=== PATIENT | female | born 1955 | race Caucasian/White ===

== ENCOUNTER → 2016-09-26 | Outpatient (CLI) | payer BC ==
[~2016-09-26] MED LIST: AMIT10TA6 PO; MULTTAB58 PO; OLME1TAB11 PO; SIMV40TA4 OR; SUMA25TA12 PO
--- NOTE | 2016-09-27 12:36 | MAMMOGRAPHY REPORT ---
BILATERAL DIGITAL SCREENING MAMMOGRAM TOMOSYNTHESIS WITH CAD: 09/26/2016 CLINICAL HISTORY: Routine screening. Patient has no complaints. TECHNIQUE: Breast tomosynthesis in addition to standard 2D mammography was performed. Current study was also evaluated with a Computer Aided Detection (CAD) system. COMPARISON: Comparison is made to exams dated: 09/17/2015 mammogram, 09/15/2013 mammogram, 09/16/2014 mammogram, 09/13/2012 mammogram, 09/12/2011 mammogram, and 09/09/2010 mammogram - [facility]. BREAST COMPOSITION: The tissue of both breasts is heterogeneously dense, which may obscure small ma sses. FINDINGS: There are a few benign coarse calcifications and mild vascular calcifications in the ace sts. A grouping of punctate microcalcifications in the lower inner posterior right breast is unchan ged mammographically dating back to at least 10/06/2008, therefore likely benign. No new suspicious mass, architectural distortion or cluster of microcalcifications is seen. IMPRESSION: ACR BI-RADS CATEGORY 1: NEGATIVE There is no mammographic evidence of malignancy. A 1 year screening mammogram is recommended. The p atient will receive written notification of the results. Approximately 10% of breast cancers are not detected with mammography. A negative mammographic repor t should not delay biopsy if a clinically suggestive mass is present. Anu Junior M.D. ay/:09/26/2016 17:40:33 Supervisor Dry Cleaning: Heather CUEVAS(R)(M), [facility] letter sent: Normal 1/2 BI-RADS Code: ACR BI-RADS Category 1: Negative
== END | disposition home or self-care (01) ==
LOC: C.MAMM 13:39
PROVIDERS: ATTEND Obstetrics & Gynecology
DX: Z12.31 Encounter for screening mammogram for malignant neoplasm of breast (principal)

== ENCOUNTER → 2016-11-07 | Outpatient (CLI) | payer BC | END | disposition home or self-care (01) | LOC: C.PAPS 09:35 | PROVIDERS: ATTEND Obstetrics & Gynecology | DX: Z01.419 Encounter for gynecological examination (general) (routine) without abnormal findings (principal); N95.2 Postmenopausal atrophic vaginitis ==

== ENCOUNTER → 2017-01-23 | Outpatient (CLI) | payer BC ==
[2017-01-23 11:55] LABS: BLOOD UREA NITROGEN 14 mg/dl (7-18); BUN/CREATININE RATIO 18.5 (10-20); CARBON DIOXIDE 25 mmol/L (21-32); CHLORIDE 107 mmol/L (98-107); CREATININE 0.76 mg/dl (0.60-1.20); GLUCOSE 95 mg/dl (70-99); POTASSIUM 4.3 mmol/L (3.5-5.1); SODIUM 141 mmol/L (136-145)
[2017-01-23 12:07] LABS: ALB/GLOB RATIO 1.2 (0.9-2); ALKALINE PHOSPHATASE 66 U/L (45-117); ALT/SGPT 28 U/L (12-78); AST/SGOT 17 U/L (15-37); CHOLESTEROL 160 mg/dl (0-200); CHOLESTEROL/HDL RATIO 2.6; HDL CHOLESTEROL 61 mg/dl; LDL CHOLESTEROL CALCULATED 85 mg/dl; TRIGLYCERIDES 72 mg/dl (0-150); VERY LOW DENSITY LIPOPROT CALC 14 mg/dl
== END | disposition home or self-care (01) ==
LOC: C.LABBC 08:23
PROVIDERS: ATTEND Internal Medicine
DX: Z11.59 Encounter for screening for other viral diseases (principal); K59.09 Other constipation

== ENCOUNTER 2017-03-09 14:26 | Emergency (ER) | payer BC ==
[~2017-03-09] VITALS: Ht 177.8 cm; Wt 89.6 kg
[2017-03-09 14:29] VITALS: BP 153/94; PULSE 77; TEMP 36.6; O2SAT 96; Ht 177.8 cm; Wt 89.6 kg
== END 2017-03-09 15:28 | disposition left against medical advice (07) ==
LOC: C.EDB 14:27 → C.EDC 15:28
DX: R42 Dizziness and giddiness (principal)

== ENCOUNTER → 2017-09-10 | Outpatient (CLI) | payer BC, OTHER ==
[~2017-09-10] MED LIST changes: +BNC/20 PO; -OLME1TAB11 PO
--- NOTE | 2017-09-10 14:05 | DIAGNOSTIC IMAGING REPORT ---
CHEST 2 VIEWS ROUTINE CLINICAL HISTORY: J20.9 Acute bronchitis with [id number] Acute pansinusiti dyspnea COMPARISON STUDY: 06/16/2013 FINDINGS: The bones soft tissues and hemidiaphragms are normal. The cardiomediastinal silhouette is normal. The lungs are clear. The pulmonary vasculature is normal. IMPRESSION: Negative chest. The above report was generated using voice recognition software. It may contain grammatical, syntax or spelling errors. Electronically signed by: Chicho Ruiz M.D. 09/10/2017 2:03 PM Dictated Date/Time: 09/10/2017 2:03 PM
[2017-09-10 16:53] LABS: BASO % 0.5 %; BASO ABS # 0.02 K/uL (0-0.2); EOS ABS # 0.04 K/uL (0-0.5); HEMATOCRIT 41.9 % (37-47); HEMOGLOBIN 14.4 g/dL (12.0-16.0); IG# 0.01 K/uL (0.00-0.02); LYMPH % 43.4 %; LYMPH ABS # 1.74 K/uL (1.2-3.4); MEAN CELL VOLUME 90.7 fL (80-100); MEAN CORPUSCULAR HEMOGLOBIN 31.2 pg (25-34); MEAN CORPUSCULAR HGB CONC 34.4 g/dl (32-36); MEAN PLATELET VOLUME 9.9 fL (7.4-10.4); MONO % 11.7 %; MONO ABS # 0.47 K/uL (0.11-0.59); NEUT % 43.2 %; NEUT ABS # 1.73 K/uL (1.4-6.5); PLATELET COUNT 199 K/uL (130-400); RED CELL DISTRIBUTION WIDTH CV 12.3 % (11.5-14.5); RED CELL DISTRIBUTION WIDTH SD 40.7 fL (36.4-46.3); WHITE BLOOD COUNT 4.01 K/uL (4.8-10.8)
== END | disposition home or self-care (01) ==
LOC: C.RADBC 13:17
PROVIDERS: ATTEND Internal Medicine
DX: J01.40 Acute pansinusitis, unspecified (principal); J20.9 Acute bronchitis, unspecified

== ENCOUNTER → 2017-09-27 | Outpatient (CLI) | payer OTHER ==
--- NOTE | 2017-09-28 13:36 | MAMMOGRAPHY REPORT ---
BILATERAL DIGITAL SCREENING MAMMOGRAM TOMOSYNTHESIS WITH CAD: 09/27/2017 CLINICAL HISTORY: Routine screening. Patient has no complaints. TECHNIQUE: Breast tomosynthesis in addition to standard 2D mammography was performed. Current study was also evaluated with a Computer Aided Detection (CAD) system. COMPARISON: Comparison is made to exams dated: 09/26/2016 mammogram, 09/17/2015 mammogram, 09/16/2014 m ammogram, 09/15/2013 mammogram, 09/13/2012 mammogram, and 09/12/2011 mammogram - [facility] enter. BREAST COMPOSITION: The tissue of both breasts is heterogeneously dense, which may obscure small mas ses. FINDINGS: There is a small 4 mm focal asymmetry with possible associated faint calcifications in the right upper outer quadrant posteriorly. Recommend spot compression tomosynthesis views, spot magnif ication views, and possible breast ultrasound for further evaluation. The remainder of both breasts are stable compared to prior exams, without suspicious masses, calcific ations, or areas of architectural distortion noted. Other bilateral benign-appearing calcifications are not significantly changed. IMPRESSION: ACR BI-RADS CATEGORY 0: INCOMPLETE EVALUATION: NEED ADDITIONAL IMAGING EVALUATION Right upper outer quadrant focal asymmetry with possible associated calcifications, for which additio nal imaging evaluation is recommended. The patient will be called to schedule an appointment. Approximately 10% of breast cancers are not detected with mammography. A negative mammographic report should not delay biopsy if a clinically suggestive mass is present. Nancy De La Paz M.D. ah/:09/27/2017 15:39:08 Compounding Assistant: Heather CUEVAS(Yahri)(M), [facility] letter sent: Addl Imaging 0 BI-RADS Code: ACR BI-RADS Category 0: Incomplete Evaluation: Need Additional Imaging Evaluation
== END | disposition home or self-care (01) ==
LOC: C.MAMM 13:44
PROVIDERS: ATTEND Obstetrics & Gynecology
DX: Z12.31 Encounter for screening mammogram for malignant neoplasm of breast (principal); R92.8 Other abnormal and inconclusive findings on diagnostic imaging of breast

== ENCOUNTER → 2017-10-10 | Outpatient (CLI) | payer OTHER ==
--- NOTE | 2017-10-10 15:37 | MAMMOGRAPHY REPORT ---
UNILATERAL RIGHT DIGITAL DIAGNOSTIC MAMMOGRAM TOMOSYNTHESIS AND TARGETED RIGHT ULTRASOUND: 10/10/2017 CLINICAL HISTORY: Callback from screening mammogram for right breast focal asymmetry and associated c alcifications. TECHNIQUE: Breast tomosynthesis in addition to standard 2D mammography was performed. Spot compress ion right CC and MLO tomosynthesis images and spot magnification right CC and ML views were obtained. COMPARISON: Comparison is made to exams dated: 09/27/2017 mammogram, 09/26/2016 mammogram, 09/17/2015 ma mmogram, 09/16/2014 mammogram, 09/15/2013 mammogram, and 09/13/2012 mammogram - [facility]ter. BREAST COMPOSITION: The tissue of the right breast is heterogeneously dense, which may obscure small masses. FINDINGS: Spot compression views demonstrate a persistent 4 mm mass with non-circumscribed margins in the right upper outer quadrant posteriorly. Spot magnification views show a few faint punctate calc ifications within the mass. Spot magnification views also show loosely grouped faint punctate and am orphous calcifications within the right upper outer quadrant anterior and inferior to the mass, best seen on the ML view. The calcifications are ill-defined and very faint and therefore it is difficult to measure the extent but measures at least 2.3 cm on the ML view. The calcifications are located ap proximately 3.5 cm inferior and anterior to the mass. Targeted ultrasound was performed of the right upper outer quadrant of the region of the mammographic mass. In the right breast at 10:00, 9 cm from the nipple, there is a slightly hypoechoic irregular solid mass which measures 4 x 3 x 4 mm. A few echogenic foci are seen within the mass which correspo nd with the mammographic calcifications. This corresponds with the mammographic mass and is suspicio us for malignancy. Recommend ultrasound-guided core needle biopsy for further evaluation. Also alireza mmend stereotactic biopsy of the loosely grouped calcifications in the right upper outer quadrant. IMPRESSION: ACR BI-RADS CATEGORY 4: SUSPICIOUS, TARGETED ULTRASOUND ACR BI-RADS CATEGORY 4: SUSPICIO US 1. Irregular hypoechoic 4 mm mass in the right 10:00 breast on ultrasound, which corresponds with th e new mammographic mass and calcifications. The mass is suspicious for malignancy and ultrasound-andre ded core needle biopsy is recommended for further evaluation. 2. Faint grouped calcifications within the right upper outer quadrant, anterior and inferior to the mass. The calcifications are indeterminate and stereotactic biopsy is recommended for further evalua tion. A phone call was made to the physician's office to confirm faxed results were received. The patient has been verbally notified of the results. She tentatively scheduled the biopsies before leaving the department. Approximately 10% of breast cancers are not detected with mammography. A negative mammographic report should not delay biopsy if a clinically suggestive mass is present. Nancy De La Paz M.D. ah/:10/10/2017 10:02:48 Counseling Director: Ashley CUEVAS(Yahir)(Irene), [facility] letter sent: Abnormal 4/5 BI-RADS Code: ACR BI-RADS Category 4: Suspicious Ultrasound BI-RADS: ACR BI-RADS Category 4: Suspici ous
== END | disposition home or self-care (01) ==
LOC: C.MAMM 08:55
PROVIDERS: ATTEND Obstetrics & Gynecology
DX: N64.89 Other specified disorders of breast (principal); R92.1 Mammographic calcification found on diagnostic imaging of breast; N63.10 Unspecified lump in the right breast, unspecified quadrant

== ENCOUNTER → 2017-10-19 | Outpatient (CLI) | payer OTHER ==
--- NOTE | 2017-10-19 12:59 | Discharge Instructions ---
Discharge Instructions Procedure Procedure Date: Oct 19, 2017. Reason for visit: Right Calcs/Core Bx Right Mass. Discharge Discharge Date: Oct 19, 2017. Discharge Diagnosis: status post breast biopsy Instructions Activity Recommendations: Additional Limitations (see below) Return to School/Work: no limitations Recommended Home Diet: No Limitations Provider Instructions: ACTIVITY RECOMMENDATIONS: * No lifting, pushing, pulling or exercising the affected side for three days. RETURN TO SCHOOL/WORK: * You may return to work/school after the procedure, but do not perform any strenuous activities for 24 to 48 hours. MEDICATIONS: * Tylenol (two 325 mg) every four to six hours if needed for mild pain (if not allergic to Tylenol). DIET: * Resume previous diet. SPECIAL CARE INSTRUCTIONS: * Keep biopsy site dry for 24 hours. May shower after 24 hours, but do not soak (bathe) incision. * May remove Tegaderm (plastic patch) tomorrow AFTER showering. * Leave the steri-strips on for one week. Allow the steri-strips to fall off by themselves. If not off after one week, you may remove them. You may place a Bandaid crosswise over the strips, if desired. * Apply ice 10 minutes on and 10 minutes off as needed. * Wear a bra at bedtime to sleep more comfortably for 2-3 days. * Your referring physician should have the results after approximately 5 to 7 business days. * Call for unusual bleeding, fever, drainage, etc or if you have any questions call during normal business hours or after hours call Dr De La Paz, [phone]. FOLLOW UP VISIT: Follow-up with Referring Physician as scheduled. Allergies Coded Allergies: NO KNOWN DRUG ALLERGIES (Verified Allergy, Unknown, ., 10/08/15) Wheat (Verified Allergy, Unknown, MIGRAINES, 10/18/15) Isabel Trevizo Recommendations: Call your doctor if: * Temperature above 101 degrees * Pain not relieved by pain medicine ordered * There is increased drainage or redness from any incision * You have any unanswered questions or concerns. Your Doctors Instructions noted above were prepared by provider Nancy De La Paz. Patient Signature Section: Patient Instructions Signature Page Gwendolyn Clarke Patient (or Guardian) Signature/Date: I have read and understand the instructions given to me by my caregivers. Caregiver/RN/Doctor Signature/Date: The above-named patient and/or guardian has received patient instructions on this date. + Original Patient Signature Page (only) stays with chart. Please make copy for patient.
--- NOTE | 2017-10-22 12:40 | MAMMOGRAPHY REPORT ---
ULTRASOUND GUIDED BIOPSY RIGHT BREAST: 10/19/2017 CLINICAL HISTORY: Right 10:00 breast mass. PATIENT CONSENT: The procedure, risks and benefits were discussed with the patient and informed writt en consent was obtained. A timeout was performed immediately prior to the procedure. PROCEDURE DESCRIPTION: With ultrasound guidance, aseptic technique, and lidocaine as the local anesth etic (1% lidocaine to anesthetize the skin and 1% lidocaine with epinephrine to anesthetize the deepe r tissues), the mass of concern in the right 10:00 breast, 9 cm from the nipple, was sampled 4 times with a 14-gauge Achieve biopsy needle. Immediately thereafter, with ultrasound guidance, aseptic heidi hnique, and lidocaine as the local anesthetic, a metallic localizer clip was placed centrally in the mass. Direct pressure was applied to the site immediately post procedure and hemostasis was achieved . Postprocedure unilateral mammograms were performed to confirm placement of the clip in the expecte d location of the breast mass. The patient tolerated the procedure without complication. She was gi carrie wound care instructions. The specimens were sent to pathology for analysis. COMPARISON: Comparison is made to exams dated: 10/19/2017 stereotactic biopsy, 10/10/2017 ultrasound, 10/10/2017 mammogram, 09/27/2017 mammogram, 09/26/2016 mammogram, and 09/17/2015 mammogram - [facility]. IMPRESSION: ULTRASOUND GUIDED BIOPSY Ultrasound-guided core needle biopsy of the irregular mass in the right 10:00 breast, with clip place ment. The patient will receive pathology results from her referring provider. Nancy De La Paz M.D. /:10/19/2017 13:01:56 Director Distribution: Mary Ellen Barnes, [facility]
--- NOTE | 2017-10-22 12:40 | MAMMOGRAPHY REPORT ---
STEREOTACTIC GUIDED BIOPSY RIGHT BREAST: 10/19/2017 CLINICAL HISTORY: Indeterminate calcifications in the right upper outer quadrant. PATIENT CONSENT: The procedure, risks, benefits, and alternatives of stereotactic biopsy with clip pl acement were discussed with the patient, and verbal and written consent was obtained. A timeout was performed immediately prior to the procedure. PROCEDURE DESCRIPTION: With stereotactic guidance, aseptic technique, and lidocaine as a local anesth etic (1% lidocaine to anesthetize the skin and 1% lidocaine with epinephrine to anesthetize the deepe r tissues), the calcifications of concern in the right upper outer quadrant were sampled multiple zahraa es with a 9-gauge vacuum-assisted biopsy needle ([employer]). The path of approach was lateral. Th e specimen radiograph demonstrates faint calcifications to be present in the samples. A metallic mar ker clip was placed at the biopsy site. This was confirmed on postprocedure mammograms. Direct pres sure was applied at the biopsy site and hemostasis was readily achieved. The patient tolerated the p rocedure without complication. She was given wound care instructions. COMPARISON: Comparison is made to exams dated: 10/10/2017 ultrasound, 10/10/2017 mammogram, 09/27/2017 m ammogram, 09/17/2015 mammogram, 09/16/2014 mammogram, and 09/15/2013 mammogram - [facility] enter. IMPRESSION: STEREOTACTIC GUIDED BIOPSY Stereotactic biopsy of indeterminate calcifications in the right upper outer quadrant, with clip plac ement. The patient will receive pathology results from her referring provider. Nancy De La Paz M.D. /:10/19/2017 13:25:21 Public Health Specialist: Mary Ellen Barnes, [facility]
--- NOTE | 2017-10-22 12:44 | MAMMOGRAPHY REPORT ---
UNILATERAL RIGHT DIGITAL DIAGNOSTIC MAMMOGRAM TOMOSYNTHESIS: 10/19/2017 CLINICAL HISTORY: Status post right breast biopsies. TECHNIQUE: Breast tomosynthesis in addition to standard 2D mammography was performed. Postprocedura l right CC and LM 2D and tomosynthesis images were obtained. COMPARISON: Comparison is made to exams dated: 10/19/2017 stereotactic biopsy, 10/10/2017 ultrasound, 10/10/2017 mammogram, 09/27/2017 mammogram, 09/26/2016 mammogram, and 09/17/2015 mammogram - [facility]. BREAST COMPOSITION: The tissue of the right breast is heterogeneously dense, which may obscure small masses. FINDINGS: A new ribbon-shaped biopsy clip is seen at the site of the biopsied mass in the right 10:00 breast posteriorly. A new dumbbell-shaped biopsy marker clip is seen at the site of the biopsied ca lcifications in the right upper outer quadrant, anterior and inferior to the biopsied mass. The 2 bi opsy marker clips are located approximately 3.6 cm apart on the cc view and 4.4 cm apart on the LM vi ew. No significant postbiopsy hematoma is seen. IMPRESSION: POST PROCEDURE IMAGING FOR MARKER PLACEMENT New biopsy marker clips status post right breast biopsies. Pathology results are pending. Approximately 10% of breast cancers are not detected with mammography. A negative mammographic report should not delay biopsy if a clinically suggestive mass is present. Nancy De La Paz M.D. /:10/19/2017 13:45:24 Mortarman: Mary Ellen Barnes, [facility] BI-RADS Code: Post Procedure Imaging For Marker Placement
== END | disposition home or self-care (01) ==
LOC: C.MAMM 12:23
PROVIDERS: ATTEND Obstetrics & Gynecology
DX: R92.0 Mammographic microcalcification found on diagnostic imaging of breast (principal); N63.10 Unspecified lump in the right breast, unspecified quadrant; N60.11 Diffuse cystic mastopathy of right breast; N60.81 Other benign mammary dysplasias of right breast; D05.11 Intraductal carcinoma in situ of right breast

== ENCOUNTER → 2017-11-14 | Outpatient (CLI) | payer OTHER | END | disposition home or self-care (01) | LOC: C.PAPS 11:09 | PROVIDERS: ATTEND Obstetrics & Gynecology | DX: Z01.419 Encounter for gynecological examination (general) (routine) without abnormal findings (principal); C50.919 Malignant neoplasm of unspecified site of unspecified female breast; N95.2 Postmenopausal atrophic vaginitis ==

== ENCOUNTER → 2018-02-22 | Outpatient (CLI) | payer OTHER ==
[~2018-02-22] MED LIST changes: -BNC/20 PO; +IRBE-37 PO; +TAMO20TA9 PO
[2018-02-22 09:49] VITALS: BP 110/81; PULSE 77; TEMP 36.4; O2SAT 94
--- NOTE | 2018-02-22 10:46 | Radiation Oncology Follow-Up ---
Radiation Oncology Follow-Up Date of Visit Feb 22, 2018. Reason For Visit One-month follow-up and cancer survivorship care plan Radiation Completion Date 01/25/18 Diagnosis (1) Malignant neoplasm of upper-outer quadrant of right breast in female, estrogen receptor positive Status: Acute Onset Date: 10/19/2017 Stage: l (A) Permanent Comment: Abnormal right breast mammogram Status post ultrasound-guided stereotactic core needle biopsy October 19, 2017 Invasive carcinoma grade 1 Estrogen receptor positive, progesterone receptor positive, and HER-2/bassem negative Status post partial mastectomy and sentinel lymph node biopsy November 30, 2017 Stage pT1a pN0M0 Genetic testing negative Status post completion of radiation therapy 01/25/2018. She received 3850 cGy utilizing accelerated partial breast irradiation Last Edited By: Shantelle Bui on Feb 05, 2018 15:31 History of Present Illness Ms. Clarke has a family history of breast cancer. She has been followed with screening mammograms. 09/27/2017. Bilateral digital screening mammogram revealed a small 4 mm focal asymmetry with possible associated faint calcifications in the right upper outer quadrant posteriorly. Recommended spot compression tomosynthesis views, spot magnification views and possible breast ultrasound for further evaluation. 10/10/2017. Unilateral right digital diagnostic mammogram tomosynthesis and targeted right breast ultrasound. In the right breast at the 10:00, 9 cm from the nipple there was a slightly hypoechoic irregular solid mass measuring 0.4 x 0.3 x 0.4 cm. A few echogenic foci are seen within the mass corresponding to the mammographic calcifications. This mass was suspicious for malignancy. Ultrasound-guided core biopsy was recommended. 10/19/2017. Patient undergoes stereotactic biopsy of the right breast and ultrasound-guided biopsy of the right breast. The biopsy of the "faint calcifications of the right upper outer quadrant" revealed focal intraductal hyperplasia but no tumor seen. The ultrasound-guided biopsy of the "faint calcifications of the right upper outer quadrant revealed an invasive carcinoma of no special type. Denys grade 1 of 3. No DCIS was identified. The infiltrative ductal adenocarcinoma was estrogen receptor positive, progesterone receptor positive and HER-2/bassem negative. Case: [id number]. 10/29/2017. This tissue was reviewed at [facility] with agreement in the diagnosis. Accession #: [id number]. Patient is seen by Dr. Cabrera for evaluation of the surgical options. She discussed breast conserving options versus mastectomy. The patient ultimately agreed to proceed with rest conserving therapy. 10/30/2017. Patient undergoes right axilla ultrasound. High resolution real- time ultrasound of the right axilla was performed showing no evidence of suspicious adenopathy. 10/30/2017. Patient undergoes bilateral breast MRIs with and without contrast. There were no suspicious enhancement, mass or abnormal findings. There was no axillary adenopathy. 11/02/2017. Patient undergoes genetic testing. This result was negative with no pathologic sequence variance or deletions/duplications identified 11/19/[address] Harry García for evaluation of the potential role of adjuvant systemic therapy. He recommended proceeding with surgery with final decision on adjuvant therapy based on final pathologic report. 11/30/2017. Patient undergoes right partial mastectomy and sentinel node biopsy by Dr. Cabrera. The right partial mastectomy specimen revealed a small focus of well-differentiated invasive ductal carcinoma. [place] grade 1. 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 All margins of the invasive carcinoma and noninvasive carcinoma were negative. There was no evidence of lymphovascular invasion. A right axillary lymph node was taken for sentinel evaluation. This contained 4 nodes all of which were negative. Additional right superior/posterior margins were excised. The final AJCC pathologic stage based on eighth addition was pT1a pN0(sn-) ER positive, NV positive and HER-2/bassem negative. Accession #: [id number]. 12/14/2017. Patient returns for follow-up visit with Dr. Harry García. Based on the findings he recommended no adjuvant systemic chemotherapy. He did recommend adjuvant radiation and following the completion of the adjuvant radiation adjuvant antiestrogen therapy for 5 years. 12/18/2017. Patient seen by radiation oncology for evaluation and discussion of the role of adjuvant radiation. 01/25/2018--- Status post completion of radiation therapy January 25, 2018. She received 3850 cGy utilizing accelerated partial breast irradiation. Interim History She has been doing well over the past month. She did not develop any area of redness. She has mild discomfort of the breast. She would give this a level 2 at the most. It does not require any [id number] or prescriptive medications. She is noticed no swelling of the breast. She has a resolving upper respiratory infection. She started tamoxifen. She is tolerating this well. She denies hot flashes. Allergies Coded Allergies: NO KNOWN DRUG ALLERGIES (Verified Allergy, Unknown, ., 10/08/15) Wheat (Verified Allergy, Unknown, MIGRAINES, 10/18/15) Home Medications Scheduled Amitriptyline Hcl (Elavil), 20 MG PO QPM Irbesartan (Avapro), 1 TAB PO DAILY Multiple Vitamin (Multivitamin), 1 TAB PO QPM Simvastatin (Zocor), 40 MG OR QPM Tamoxifen (Nolvadex), 20 MG PO DAILY Scheduled PRN Sumatriptan Succinate (Imitrex), 25 MG PO PRN PRN for Migraine Review of Systems Gastrointestinal: Symptoms: WNL Oral: Symptoms: No Problems Respiratory: Symptoms: Productive Cough Sputum Character: little yellow, thin mucus Urinary: Symptoms: WNL Skin: Symptoms: No Problems Breast: Right Upper Arm Measurement: 32.0 Right Mid Arm Measurement: 27.5 Right Wrist Measurement: 16.5 Left Upper Arm Measurement: 32.0 Left Mid Arm Measurement: 28.0 Left Wrist Measurement: 16.5 Arm Dominence: Left Physical Exam Vital Signs Date Time Temp Pulse Resp B/P (MAP) Pulse Ox O2 Delivery O2 Flow Rate FiO2 02/22/18 09:49 36.4 77 18 110/81 94 Fatigue: None General Appearance: no apparent distress Eyes: normal inspection, EOMI ENT: normal ENT inspection, hearing grossly normal Respiratory/Chest: lungs clear, no respiratory distress, no accessory muscle use Breast: Breast examination reveals well-healed incisions of the right breast. There are no masses or tenderness and no axillary adenopathy. She has a small area of hyperpigmentation above the incision. There is no erythema or edema. She has no nipple changes. Using the Fountain score cosmesis she has a good outcome. The left breast showed no masses or tenderness and no axillary adenopathy. Cardiovascular: regular rate, rhythm, no gallop, no murmur Extremities: no pedal edema Neurologic/Psychiatric: no motor/sensory deficits, alert, normal mood/affect Skin: warm/dry Pain Management Patient Reports Pain: Yes Side: Right Pain Location: Breast Patient Preferred Pain Scale: 0 - 10 Initial Pain Intensity: 2.0 Pain Management Plan She does not require any [id number] or prescriptive medications. Laboratory Laboratory Results: not applicable Pathology Pathology Results: were reviewed, and pertinent findings noted in HPI Imaging Imaging Studies: not applicable Assessment & Plan Plan: Continue regular follow-up with her primary care provider, medical oncologist, and breast surgeon. She sees the breast surgeon in May. She continues on the tamoxifen. Today we completed a cancer survivorship care plan. Mammography was scheduled for the right breast in 2 months and bilateral mammography in 8 months. We reviewed that these will be digital diagnostic mammograms. She was given a copy of her survivorship document. She was given a survivorship booklet. For the small area of hyperpigmentation Aquaphor was recommended. We asked her to return to our office in 6 months. She may call if she has any questions or concerns in the interim. Total Time In Follow-Up I spent 20 minutes speaking to the patient in performing examination. I spent 20 minutes reviewing information, preparing the survivorship document, and completing this note. Copy To Raymundo Hayden M.D.; Harry García MD; Maia Cabrera D.O.
== END | disposition home or self-care (01) ==
LOC: C.ONC 09:35
PROVIDERS: ATTEND Physician Assistant Medical
DX: Z08 Encounter for follow-up examination after completed treatment for malignant neoplasm (principal); Z92.3 Personal history of irradiation; Z85.3 Personal history of malignant neoplasm of breast